=== PATIENT | female | born 1990 | race Caucasian/White ===

== ENCOUNTER 2018-11-13 22:03 | Emergency (ER) | payer MEDICAID ==
[~2018-11-13] VITALS: Ht 175.3 cm; Wt 84.8 kg
[2018-11-13 22:38] VITALS: BP 146/92
[2018-11-14] MEDS ORDERED: ALBUTEROL SULF 2.5 MG/0.5ML(0.5%) NEB SOLN NEB ONE (01:45)
[2018-11-14] MEDS ORDERED: IPRATROPIUM BROM 0.5 MG/2.5ML INH SOL NEB ONE (01:45)
[2018-11-14] MEDS ORDERED: methylPREDNISolone SOD SUCC 125 MG/2 ML VL IM ONE (01:45)
== END 2018-11-14 02:48 | disposition home or self-care (01) ==
LOC: ER 22:05
DX: J20.9 Acute bronchitis, unspecified (principal)
CPT/HCPCS: 71046; 94640; 96372; 99283; J2930; J7611; J7644

== ENCOUNTER 2021-07-06 12:38 | Emergency (ER) | payer MEDICAID ==
[~2021-07-06] VITALS: Ht 175.3 cm; Wt 80.7 kg
[2021-07-06 12:54] VITALS: BP 126/81
[2021-07-06 13:53] LABS: Urine Bacteria FEW /hpf (None Seen); Urine Blood Negative /uL (Negative); Urine Specific Gravity 1.007 (1.001-1.035); Urine WBC 2 /hpf (0 - 5)
[2021-07-06 15:28] LABS: Basophils # (auto) 0 10 ^3/uL (0-0.2); Basophils % (auto) 0.8 % (0.0-2.0); Eosinophils # (auto) 0 10 ^3/uL (0-0.8); Eosinophils % (auto) 1.1 % (0.0-7.0); Hemoglobin 13.8 g/dL (12.2-16.2); Lymphocytes # (auto) 0.6 10 ^3/uL (0.4-5.4); Lymphocytes % (auto) 15.9 % (10.0-50.0); Mean Corpuscular Hemoglobin 31.4 pg (28.0-32.0); Mean Corpuscular Hgb Conc. 35.4 g/dL (32.0-36.0); Mean Corpuscular Volume 88.5 fL (80.0-100.0); Monocytes # (auto) 0.3 10 ^3/uL (0-1.3); Monocytes % (auto) 6.8 % (0.0-12.0); Neutrophils # (auto) 2.9 10 ^3/uL (1.6-8.6); Neutrophils % (auto) 75.4 % (37.0-80.0); Nucleated Red Blood Cells % 0.1 %; Red Cell Distribution Width 12.5 % (11.8-14.3); White Blood Cell 3.9 10^3/uL (4.4-10.8)
[2021-07-06 15:43] LABS: Albumin 4.2 g/dL (3.4-5.0); Calcium 9.2 mg/dL (8.5-10.1); Potassium 4.3 mmol/L (3.5-5.1)
[2021-07-06 15:46] LABS: BUN/Creatinine Ratio 14.5
[2021-07-06 15:48] LABS: Bilirubin, Total 0.6 mg/dL (0.2-1.0); Total Protein 7.4 g/dL (6.4-8.2)
== END 2021-07-06 18:39 | disposition home or self-care (01) ==
LOC: EDBD 12:38 → ER 12:51
DX: R10.2 Pelvic and perineal pain (principal); R06.02 Shortness of breath; F17.210 Nicotine dependence, cigarettes, uncomplicated
CPT/HCPCS: 36415; 71046; 76856; 80053; 81001; 81025; 84484; 85025; 93005

== ENCOUNTER 2023-08-10 13:34 | Emergency (ER) | payer MEDICAID ==
[~2023-08-10] VITALS: Ht 175.3 cm; Wt 85.4 kg
[~2023-08-10 13:34] MED LIST: NITR-87 PO
[2023-08-10 13:57] LABS: Urine Bacteria None Seen /hpf (None Seen)
[2023-08-10 14:07] LABS: Basophils # (auto) 0 10 ^3/uL (0-0.2); Basophils % (auto) 0.7 % (0.0-2.0); Eosinophils # (auto) 0 10 ^3/uL (0-0.8); Eosinophils % (auto) 0.8 % (0.0-7.0); Hematocrit 38.9 % (36.0-46.0); Hemoglobin 13.6 g/dL (12.2-16.2); Lymphocytes # (auto) 1.2 10 ^3/uL (0.4-5.4); Mean Corpuscular Volume 85.8 fL (80.0-100.0); Monocytes # (auto) 0.3 10 ^3/uL (0-1.3); Monocytes % (auto) 6.7 % (0.0-12.0); Neutrophils # (auto) 2.6 10 ^3/uL (1.6-8.6); Neutrophils % (auto) 62.8 % (37.0-80.0); Nucleated Red Blood Cells % 0.1 %; Red Blood Cells 4.54 10^6/uL (4.0-5.20); Red Cell Distribution Width 12.9 % (11.8-14.3); White Blood Cell 4.1 10^3/uL (4.4-10.8)
[2023-08-10 14:14] LABS: Urine Blood Negative /uL (Negative); Urine Clarity Turbid (Clear); Urine Color Yellow (Yellow); Urine Hyaline Cast FEW /lpf (0 - 2); Urine Mucus FEW (None Seen); Urine Protein, UAD 1+ (Negative); Urine Specific Gravity 1.035 (1.001-1.035); Urine Urobilinogen Normal (Negative); Urine WBC 7 /hpf (0 - 5); Urine pH 5.5 (5.0-9.0)
[2023-08-10 14:19] LABS: Alanine Aminotransferase 15 U/L (7-40); Alkaline Phosphatase 50 U/L (46-116); Anion Gap 5 (5-15); BUN/Creatinine Ratio 14.8 (10.0-20.0); Blood Urea Nitrogen 12 mg/dL (9-23); Calcium 10.1 mg/dL (8.5-10.1); Carbon Dioxide 26 mmol/L (20-30); Chloride 110 mmol/L (98-107); Glucose 86 mg/dL (74-106); Magnesium 1.8 mg/dL (1.6-2.6); Potassium 3.3 mmol/L (3.5-5.1); Sodium 141 mmol/L (136-145)
[2023-08-10 14:20] LABS: Albumin 4.9 g/dL (3.2-4.8); Aspartate Aminotransferase 11 U/L (13-40); Bilirubin, Total 1.7 mg/dL (0.2-1.0); Total Protein 6.7 g/dL (5.7-8.2)
[2023-08-10 15:33] LABS: Amphetamine Screen, Urine Neg (NEGATIVE); Barbiturate Scree,Urine Neg (NEGATIVE); Benzodiazephine Screen, Urine Neg (NEGATIVE); Cocaine Screen, Urine Neg (NEGATIVE); Opiate Scree,Urine Neg (NEGATIVE); Phencyclidine Screen, Urine Neg (NEGATIVE)
[2023-08-10 15:34] LABS: Cannabinoid Screen, Urine Pos (NEGATIVE)
[2023-08-10 16:37] VITALS: BP 137/72; PULSE 73; RESP 18; TEMP 98.4; O2SAT 100
== END 2023-08-10 16:38 | disposition home or self-care (01) ==
LOC: ER 13:34
DX: R00.2 Palpitations (principal); R10.2 Pelvic and perineal pain; I10 Essential (primary) hypertension; F15.90 Other stimulant use, unspecified, uncomplicated; Z85.9 Personal history of malignant neoplasm, unspecified; Z98.890 Other specified postprocedural states; Z79.899 Other long term (current) drug therapy
CPT/HCPCS: 36415; 71045; 80053; 80307; 81001; 83605; 83735; 84484; 84702; 85025; 85379; 93005

== ENCOUNTER 2023-08-12 10:05 | Emergency (ER) | payer MEDICAID ==
[~2023-08-12] VITALS: Ht 175.3 cm; Wt 85.6 kg
[2023-08-12] MEDS: SODIUM CHLORIDE 0.9% 1,000 ML IVB ONE (10:30)
[2023-08-12 10:34] VITALS: PULSE 86; RESP 18; O2SAT 95
[2023-08-12 10:39] VITALS: BP 124/95; PULSE 86; RESP 18; TEMP 97.5; O2SAT 95
[2023-08-12 10:55] LABS: Basophils # (auto) 0 10 ^3/uL (0-0.2); Basophils % (auto) 1.1 % (0.0-2.0); Eosinophils # (auto) 0 10 ^3/uL (0-0.8); Eosinophils % (auto) 1.7 % (0.0-7.0); Hematocrit 42.3 % (36.0-46.0); Hemoglobin 14.5 g/dL (12.2-16.2); Lymphocytes # (auto) 0.9 10 ^3/uL (0.4-5.4); Lymphocytes % (auto) 31.5 % (10.0-50.0); Mean Corpuscular Hemoglobin 29.8 pg (28.0-32.0); Mean Corpuscular Hgb Conc. 34.2 g/dL (32.0-36.0); Mean Corpuscular Volume 87.1 fL (80.0-100.0); Monocytes # (auto) 0.2 10 ^3/uL (0-1.3); Monocytes % (auto) 5.7 % (0.0-12.0); Neutrophils # (auto) 1.7 10 ^3/uL (1.6-8.6); Nucleated Red Blood Cells % 0.1 %; Red Blood Cells 4.85 10^6/uL (4.0-5.20); Red Cell Distribution Width 12.7 % (11.8-14.3); White Blood Cell 2.8 10^3/uL (4.4-10.8)
== END 2023-08-12 12:00 | disposition home or self-care (01) ==
LOC: ER 10:05
DX: R00.2 Palpitations (principal); I10 Essential (primary) hypertension; F15.90 Other stimulant use, unspecified, uncomplicated; Z85.9 Personal history of malignant neoplasm, unspecified; Z98.890 Other specified postprocedural states; Z79.899 Other long term (current) drug therapy
CPT/HCPCS: 36415; 83735; 84484; 85025; 93005; 96360; 99284; J7030